=== PATIENT | female | born 1965 | race Caucasian/White ===

== ENCOUNTER 2021-06-07 13:26 | Outpatient (CLI) | payer BC | END 2021-06-07 13:27 | disposition home or self-care (01) | LOC: CSHMRI 13:26 | PROVIDERS: ATTEND Nurse Practitioner Family | DX: M50.222 Other cervical disc displacement at C5-C6 level (principal); M47.9 Spondylosis, unspecified; E55.9 Vitamin D deficiency, unspecified; R53.82 Chronic fatigue, unspecified; I70.202 Unspecified atherosclerosis of native arteries of extremities, left leg; D72.829 Elevated white blood cell count, unspecified; E78.5 Hyperlipidemia, unspecified; D50.8 Other iron deficiency anemias; K21.00 Gastro-esophageal reflux disease with esophagitis, without bleeding; I10 Essential (primary) hypertension; N95.9 Unspecified menopausal and perimenopausal disorder; G25.81 Restless legs syndrome | CPT/HCPCS: 72141 ==

== ENCOUNTER 2021-09-16 13:35 | Outpatient (CLI) | payer BC ==
[2021-09-16] MEDS ORDERED: Magnevist 469MG/ML 20 ML VIAL ONE (15:44)
== END 2021-09-16 13:36 | disposition home or self-care (01) ==
LOC: CSHMRI 13:35
PROVIDERS: ATTEND Registered Nurse
DX: R10.31 Right lower quadrant pain (principal); S39.091A Other injury of muscle, fascia and tendon of abdomen, initial encounter; M70.62 Trochanteric bursitis, left hip; M70.61 Trochanteric bursitis, right hip; T14.8XXA Other injury of unspecified body region, initial encounter
CPT/HCPCS: A9579

== ENCOUNTER 2024-01-26 07:18 | Outpatient (CLI) | payer BC | END 2024-01-26 07:19 | disposition home or self-care (01) | LOC: CSHRAD 07:18 | PROVIDERS: ATTEND Nurse Practitioner Family | DX: J01.10 Acute frontal sinusitis, unspecified (principal) | CPT/HCPCS: 71046 ==